=== PATIENT | male | born 1980 | race Caucasian/White ===

== ENCOUNTER → 2024-11-24 07:03 | Outpatient (REF) | payer SELFPAY | LOC: RAD 07:03 | PROVIDERS: ATTENDING PHYSICIAN Nurse Practitioner Acute Care; FAMILY PHYSICIAN Internal Medicine | DX: S15.101A Unspecified injury of right vertebral artery, initial encounter (principal) | CPT/HCPCS: 70498; Q9967 ==

== ENCOUNTER 2025-03-23 07:10 | Outpatient (RCR) | payer OTHER, SELFPAY | END 2025-03-23 23:59 | disposition home or self-care (01) | LOC: RPT 07:10 | PROVIDERS: ATTENDING PHYSICIAN Physician Assistant; FAMILY PHYSICIAN Internal Medicine | DX: S82.831D Other fracture of upper and lower end of right fibula, subsequent encounter for closed fracture with routine healing (principal); S92.001D Unspecified fracture of right calcaneus, subsequent encounter for fracture with routine healing; Z73.6 Limitation of activities due to disability; S92.321D Displaced fracture of second metatarsal bone, right foot, subsequent encounter for fracture with routine healing; S92.331D Displaced fracture of third metatarsal bone, right foot, subsequent encounter for fracture with routine healing; S92.341D Displaced fracture of fourth metatarsal bone, right foot, subsequent encounter for fracture with routine healing; S92.351D Displaced fracture of fifth metatarsal bone, right foot, subsequent encounter for fracture with routine healing; R26.89 Other abnormalities of gait and mobility; R20.2 Paresthesia of skin; M62.81 Muscle weakness (generalized); V29.99XD Rider (driver) (passenger) of other motorcycle injured in unspecified traffic accident, subsequent encounter | CPT/HCPCS: 97110; 97162 ==